=== PATIENT | female | born 2000 | race Caucasian/White ===

== ENCOUNTER 2020-10-15 10:36 | Emergency (ER) | payer OTHER ==
--- NOTE | 2020-10-15 11:02 | EDM.PDOC ---
ED HPI GENERAL MEDICAL PROBLEM - General Chief Complaint: Gastrointestinal Problem Stated Complaint: nausea/vomiting Time Seen by Provider: 10/15/20 10:45 Source of Information: Reports: Patient History Limitations: Reports: No Limitations - History of Present Illness INITIAL COMMENTS - FREE TEXT/NARRATIVE: c/o n/v at 10w by early u/s pt is from [facility], her was just deployed to [facility], pt drove up from [place] yesterday with her [id number] who lives locally n/v x last 2d, saw fruit coordinator 3d ago, has had dating u/s and labs done in [place] little to eat or drink in past 2d, no food today, did drink several ounces of fluids today says she woke up today and told herself she needed an IV, says "I have HG" (hyperemesis gravidarum) x 1, had a subchorionic hemorrhage with vag bleed x 3d in 2nd trimester with last preg, otherwise no compliants denies cigs/THC/alc/street drugs has MVI put often not able to take it d/t N has Zofran at home that has not helped no f/c/d says she quarantined for 2w prior to leaving [place], plans to stay locally with her [id number] for 2m when she is dealing with the n/v, will deliver in [place] is planning on going to [facility] or [facility] for care as they both take her insurance - Related Data Allergies Allergy/AdvReac Type Severity Reaction Status Date / Time azithromycin Allergy Hives Verified 10/15/20 10:39 Home Meds: Home Meds Ondansetron [Ondansetron ODT] 4 mg PO Q8H PRN #12 tab.rapdis 10/15/20 [Rx] ED ROS GENERAL - Review of Systems Review Of Systems: See Below Constitutional: Reports: No Symptoms HEENT: Reports: No Symptoms Respiratory: Reports: No Symptoms Cardiovascular: Reports: No Symptoms Endocrine: Reports: No Symptoms GI/Abdominal: Reports: Nausea, Vomiting : Reports: No Symptoms Musculoskeletal: Reports: No Symptoms Skin: Reports: No Symptoms Neurological: Reports: No Symptoms Psychiatric: Reports: No Symptoms Hematologic/Lymphatic: Reports: No Symptoms Immunologic: Reports: No Symptoms ED EXAM - Physical Exam Exam: See Below Exam Limited By: No Limitations General Appearance: Alert, WD/WN, No Apparent Distress, Other (pleasant, alert, sitting in chair, nonill) Ears: Normal External Exam Throat/Mouth: Normal Inspection, Normal Voice, No Airway Compromise Head: Atraumatic, Normocephalic Neck: Normal Inspection, Supple, Non-Tender, Full Range of Motion. No: Lymphadenopathy (R), Lymphadenopathy (L) Respiratory/Chest: No Respiratory Distress, Lungs Clear, Normal Breath Sounds, Chest Non-Tender Cardiovascular: Regular Rate, Rhythm, No Murmur, No Rub GI/Abdominal Exam: Soft, Non-Tender, No Organomegaly, No Distention, Other (gravid) Extremities: Normal Inspection, Non-Tender, No Pedal Edema, Other (mild de'cd turgor UE) Neurological: Alert, Oriented, CN II-XII Intact, Normal Cognition, Normal Gait, No Motor/Sensory Deficits Psychiatric: Normal Affect, Normal Mood Skin Exam: Warm, Dry, Intact, Normal Color, No Rash Lymphatic: No Adenopathy Course - Vital Signs Last Recorded V/S: Last Vital Signs Temp 36.3 C 10/15/20 10:36 Pulse 114 H 10/15/20 10:36 Resp 18 10/15/20 10:36 BP 103/81 10/15/20 10:36 Pulse Ox 100 10/15/20 10:36 - Orders/Labs/Meds Meds: Medications Discontinued Medications Generic Name Dose Route Start Last Admin Trade Name Abdoulq PRN Reason Stop Dose Admin Sodium Chloride 1,000 mls @ 999 mls/hr 10/15/20 10:56 10/15/20 11:05 Normal Saline IV 10/15/20 11:56 999 mls/hr .BOLUS ONE Administration Ondansetron HCl 4 mg 10/15/20 10:56 10/15/20 11:25 Zofran IVPUSH 10/15/20 10:57 4 mg ONETIME ONE Administration - Re-Assessments/Exams Free Text/Narrative Re-Assessment/Exam: 10/15/20 12:09 pt states she is feeling better, still has 8 tabs of Zofran ODT, says she usually 1 in AM, occasionally a 2nd [address] here from [place] took 2d, deployed for 3m, then will return to [place] as will pt N gone Departure - Departure Time of Disposition: 12:11 Disposition: Home, Self-Care 01 Condition: Good Clinical Impression: Hyperemesis gravidarum - Discharge Information *PRESCRIPTION DRUG MONITORING PROGRAM REVIEWED*: Not Applicable *COPY OF PRESCRIPTION DRUG MONITORING REPORT IN PATIENT HERMAN: Not Applicable Prescriptions: Ondansetron [Ondansetron ODT] 4 mg PO Q8H PRN #12 tab.rapdis PRN Reason: Nausea Forms: ED Department Discharge Sepsis Event Note (ED) - Evaluation Sepsis Screening Result: No Definite Risk - Focused Exam Vital Signs: Vital Signs Temp Pulse Resp BP Pulse Ox 10/15/20 10:36 36.3 C 114 H 18 103/81 100
[2020-10-15] MEDS: Sodium Chloride 0.9% 1,000 ML IV ONE (11:05)
[2020-10-15] MEDS: Ondansetron 4 MG/2 ML SDV IVPUSH ONE (11:25)
== END 2020-10-15 12:34 | disposition home or self-care (01) ==
LOC: FB.ED 10:36
DX: O21.0 Mild hyperemesis gravidarum (principal); Z88.1 Allergy status to other antibiotic agents
CPT/HCPCS: 96374; 99283-25; 99284; J2405; J7030

== ENCOUNTER 2021-01-06 23:29 | Emergency (ER) | payer OTHER ==
--- NOTE | 2021-01-06 23:41 | EDM.PDOC ---
ED HPI GENERAL MEDICAL PROBLEM - General Stated Complaint: TICK ON ARM Time Seen by Provider: 01/06/21 23:40 Source of Information: Reports: Patient History Limitations: Reports: No Limitations - History of Present Illness INITIAL COMMENTS - FREE TEXT/NARRATIVE: 20-year-old female who prior a 45 minutes prior to arrival noted a small tick that by her description was a deer tick that was attached to her right upper arm. She did not notice this tick attached earlier today and therefore she does not feel that the tick was attached for more than about 8-10 hours. Her removed the tick and there was some concern that the head of the tick was still attached and the continued to try to remove this as well. This caused the patient some discomfort and it was stinging quite a bit initially but now the pain is down to about a 1/10. They presented to the emergency department now wanting the area to be checked for retained tick products and also for concern about the ramifications of the tick bite particularly related to the fact that the patient is about 22 weeks . The patient has been having no other problems. She has no abdominal pain. She has had no vaginal fluid or blood leakage. There are no other associated signs or symptoms. There are no other modifying factors. Onset: Today Duration: Improving Location: Reports: Upper Extremity, Right (Right upper arm) Quality: Reports: Other (Stinging) Severity: Mild Improves with: Reports: None Worsens with: Reports: Other (Touching the area) Context: Reports: Other (As above) Associated Symptoms: Reports: No Other Symptoms Treatments SQUEEGEE FINISHER: Reports: Other (see below) - Related Data Allergies Allergy/AdvReac Type Severity Reaction Status Date / Time azithromycin Allergy Hives Verified 01/06/21 23:50 Home Meds: Home Meds Ondansetron [Ondansetron ODT] 4 mg PO Q8H PRN #12 tab.rapdis 10/15/20 [Rx] Pnv No.95/Ferrous Fum/Folic AC [ Tablet] 1 each PO DAILY 01/06/21 [History] Past Medical History - Past Health History Medical/Surgical History: Denies Medical/Surgical History WIRE INSERTER History: Reports: LMP (Approximate): (Approximately 22 weeks today, 01/07/2021.) Other WIRE INSERTER History: Social & Family History - Tobacco Use Tobacco Use Status *Q: Unknown Ever Used Tobacco (Nonsmoker.) - Caffeine Use Caffeine Use: Reports: None - Alcohol Use Alcohol Use History: No - Living Situation & Occupation Living situation: Reports: Social History Comment: Her is in the [employer]. They live in [facility]. They are appear visiting family. ED ROS GENERAL - Review of Systems Review Of Systems: See Below Constitutional: Reports: No Symptoms HEENT: Reports: No Symptoms Respiratory: Reports: No Symptoms Cardiovascular: Reports: No Symptoms Endocrine: Reports: No Symptoms GI/Abdominal: Reports: No Symptoms : Reports: No Symptoms Musculoskeletal: Reports: No Symptoms Skin: Reports: Wound (Tick bite to right upper arm) Neurological: Reports: No Symptoms Psychiatric: Reports: Anxiety Hematologic/Lymphatic: Reports: No Symptoms Immunologic: Reports: Other (Up-to-date on her tetanus immunization status.) ED EXAM, SKIN/RASH Exam: See Below Exam Limited By: No Limitations General Appearance: Alert, WD/WN, Anxious, Other (Nontoxic.) Eye Exam: Bilateral Eye: EOMI, Normal Inspection Ears: Normal External Exam, Hearing Grossly Normal Nose: Normal Inspection, Normal Mucosa, No Blood Throat/Mouth: Normal Inspection, Normal Lips, Normal Teeth, Normal Gums, Normal Oropharynx, Normal Voice, No Airway Compromise Head: Atraumatic, Normocephalic Neck: Normal Inspection, Supple, Non-Tender, Full Range of Motion Respiratory/Chest: No Respiratory Distress, Lungs Clear, Normal Breath Sounds, No Accessory Muscle Use, Chest Non-Tender Cardiovascular: Normal Peripheral Pulses, Regular Rate, Rhythm, No Murmur Peripheral Pulses: 2+: Radial (L), Radial (R) GI/Abdominal: Normal Bowel Sounds, Soft, Non-Tender Back Exam: Normal Inspection Extremities: Normal Range of Motion, Non-Tender, No Pedal Edema, Normal Capillary Refill Neurological: Alert, Oriented, CN II-XII Intact, Normal Cognition, No Motor/Sensory Deficits Psychiatric: Anxious Skin: Warm, Dry, Intact, No Rash, Wound/Incision (Small wound on the anterior, distal right upper arm. This is consistent with a tick bite and there does not appear to be any retained parts.) Location, Skin: Lower Extremity, Right Characteristics: Other (Small break in the skin) Course - Vital Signs Last Recorded V/S: Last Vital Signs Temp 36.7 C 01/06/21 23:45 Pulse 84 01/06/21 23:45 Resp 18 01/06/21 23:45 BP 106/69 01/06/21 23:45 Pulse Ox 100 01/06/21 23:45 - Re-Assessments/Exams Free Text/Narrative Re-Assessment/Exam: 01/06/21 23:55: Right upper arm with small wound that patient reports it was where the tick was attached. Per her history and the 's description, this appears to have been a deer tick and by their history also this deer tick was attached for less than 24 hours. There does not appear to be any remaining piece of the deer tick in the patient's skin. I discussed deer tick bites and Lyme disease. With less than 24 hours of attachment, I think the chance of Lyme disease is almost 0. I don't feel that there is any treatment necessary at this time. I did however recommend that the patient follow-up with her primary provider in 3-4 weeks to get Lyme testing. Patient is also up-to-date on her tetanus immunization. Wound care instructions were given to the patient and her . The patient is stable for discharge and they are in agreement with the plan for discharge. Departure - Departure Time of Disposition: 00:07 Disposition: Home, Self-Care 01 Condition: Good Clinical Impression: Second trimester Tick bite of upper arm Qualifiers: Encounter type: initial encounter Laterality: right Qualified Code(s): S40.861A - Insect bite (nonvenomous) of right upper arm, initial encounter - Discharge Information Instructions: Tick Bite Information, Adult, [id number], Insect Bite, Adult, [id number] Referrals: PCP,Unknown [Ordering Only Provider] - Forms: ED Department Discharge Additional Instructions: As we discussed, the area on your right upper arm does not appear to have any parts of the tick remaining. You should clean this area with mild soap and water and apply bacitracin and a Band-Aid until the area has scabbed over. Then, you may leave the area open. It appears from your history that this was most probably a deer tick. It also appears from your history that a deer tick was not attached for more than 24 hours. In order for there to be a chance of burak Lyme disease from a deer tick bite, the deer tick needs to be attached for 24 hours or greater. Therefore, I feel that there is almost no chance that you could contract Lyme disease from this tick bite. However, I do recommend that you follow-up with your primary provider in 3-4 weeks and you'll need to get Lyme testing at that time. In the meantime, if you develop any fever of unclear etiology, generalized body aches or joint aches, you should follow-up with your primary provider at that time. Back to the emergency department for increasing redness in the area of the tick bite, fever, vomiting or any other concerning sign or symptom. Sepsis Event Note (ED) - Focused Exam Vital Signs: Vital Signs Temp Pulse Resp BP Pulse Ox 01/06/21 23:45 36.7 C 84 18 106/69 100
== END 2021-01-07 00:20 | disposition home or self-care (01) ==
LOC: FB.ED 23:29
DX: O9A.212 Injury, poisoning and certain other consequences of external causes complicating pregnancy, second trimester (principal); S40.861A Insect bite (nonvenomous) of right upper arm, initial encounter; Z88.1 Allergy status to other antibiotic agents; Z3A.22 22 weeks gestation of pregnancy; W57.XXXA Bitten or stung by nonvenomous insect and other nonvenomous arthropods, initial encounter
CPT/HCPCS: 99281